=== PATIENT | female | born 1935 | race Caucasian/White ===

== ENCOUNTER 2016-07-13 14:06 | Outpatient (CLI) | payer MEDICARE, OTHER ==
--- NOTE | 2016-07-13 15:08 | DIAGNOSTIC IMAGING REPORT ---
PROCEDURE: XR KNEE 4 VIEWS - LEFT INDICATION: FALL X 2 DAYS, PAIN--TOTAL L KNEE ARTHROPLASTY TECHNIQUE: Five views COMPARISON: None. FINDINGS: Left knee arthroplasty without evidence of loosening. Osteopenia. No evidence of a fracture. Mild suprapatellar effusion. Extensive calcific atherosclerosis. IMPRESSION: 1. Left knee arthroplasty 2. Mild suprapatellar effusion
== END 2016-07-13 23:00 ==
LOC: XR SRH 14:06
DX: M25.462 Effusion, left knee (principal); Z96.652 Presence of left artificial knee joint